=== PATIENT | female | born 1955 | race Caucasian/White ===

== ENCOUNTER 2018-10-17 09:34 | Emergency (ER) | payer OTHER ==
[~2018-10-17] VITALS: Ht 172.7 cm; Wt 90.7 kg
[~2018-10-17 09:34] MED LIST: BACL10 PO; CHOL10002 PO; ENAL5 PO; LEVFLO500; RILUZOLE50 MG PO; TIAZAC PO; TOCO1000 PO; VENL150ER PO
[2018-10-17 10:19] LABS: Alanine Aminotransfer (ALT/SGP 30 U/L (12-78); Albumin, Blood 4.2 g/dL (3.4-5.0); Albumin/Globulin Ratio 1.1 (0.8-1.8); Alk Phos 51 U/L (50-136); Anion Gap 3 mmol/L (6-16); Aspartate Aminotrans (AST/SGOT 28 U/L (12-37); Bilirubin, Total 0.5 mg/dL (0.1-1.0); Blood Urea Nitrogen 15 mg/dL (8-24); Bun/Creatinine Ratio 43.9 (12.0-20.0); CO2, Blood 26 mmol/L (21-32); Calcium, Blood 9.5 mg/dL (8.5-10.1); Chloride, Blood 104 mmol/L (98-108); Creatinine, Blood 0.34 mg/dL (0.40-1.00); Globulin, Blood 3.7 g/dL (2.2-4.0); Glomerular Filtration Rate >60 (60-); Glucose, Blood 171 mg/dL (70-99); Potassium, Blood 4.5 mmol/L (3.5-5.5); Sodium, Blood 133 mmol/L (136-145); Total Protein, Blood 7.9 g/dL (6.4-8.2)
[2018-10-17 10:22] LABS: BASOPHILS ABSOLUTE AUTO 0.07 K/mm3 (0.00-0.23); BASOPHILS PERCENT AUTO 1 % (0-2); EOSINOPHILS ABSOLUTE AUTO 0.08 K/mm3 (0.00-0.68); EOSINOPHILS PERCENT AUTO 1 % (0-6); Hematocrit 47.9 % (33.0-51.0); Hemoglobin 15.7 g/dL (11.5-16.0); IMMATURE GRAN ABSOLUTE AUTO 0.03 K/mm3 (0.00-0.10); IMMATURE GRAN PERCENT AUTO 0 % (0-1); LYMPHOCYTES ABSOLUTE AUTO 1.49 K/mm3 (0.84-5.20); LYMPHOCYTES PERCENT AUTO 18 % (21-46); MONOCYTES ABSOLUTE AUTO 0.47 K/mm3 (0.16-1.47); MONOCYTES PERCENT AUTO 6 % (4-13); Mean Corpuscular HGB 29.2 pg (26.0-34.0); Mean Corpuscular HGB Conc 32.8 g/dL (31.5-36.5); Mean Corpuscular Volume 89 fL (80-100); Mean Platelet Volume 10.6 fL (9.1-12.4); NEUTROPHILS ABSOLUTE AUTO 6.03 K/mm3 (1.96-9.15); NEUTROPHILS PERCENT AUTO 74 % (41-73); Platelet Count 292 K/mm3 (150-400); RDW Standard Deviation 48.6 fL (35.1-46.3); Red Blood Cell Count 5.37 M/mm3 (3.80-5.20); White Blood Cell Count 8.17 K/mm3 (4.00-11.30)
[2018-10-17] MEDS ORDERED: Zofran8 MG PO ×2 (10:49→11:49)
[2018-10-17] MEDS ORDERED: VENL37.5 PO (10:52)
[2018-10-17] MEDS ORDERED: ALBU2.5V5 (10:52)
[2018-10-17] MEDS ORDERED: Pyridium200 MG PO (10:52)
[2018-10-17] MEDS ORDERED: CLOB.05TO (10:52)
[2018-10-17] MEDS ORDERED: HYDHOMSY (10:53)
[2018-10-17] MEDS ORDERED: Align4 MG PO (10:53)
[2018-10-17] MEDS ORDERED: Lomotil Tablet1 EACH PO (10:53)
[2018-10-17] MEDS ORDERED: CARV3.125 PO (11:04)
[2018-10-17] MEDS ORDERED: ATROPINE 0.01%-10 ML OP (11:04)
[2018-10-17] MEDS ORDERED: BACL10 PO (11:04)
[2018-10-17] MEDS ORDERED: RILUZOLE50 MG PO (11:05)
== END 2018-10-17 11:54 | disposition home or self-care (01) ==
LOC: ER 09:34
PROVIDERS: Emergency Medicine
DX: G12.21 Amyotrophic lateral sclerosis (principal); N39.0 Urinary tract infection, site not specified; Z79.899 Other long term (current) drug therapy
CPT/HCPCS: 36415; 71045; 80053; 85025; 93005; 93010; 99285-25